=== PATIENT | female | born 1935 | race Caucasian/White ===

== ENCOUNTER 2020-10-18 13:46 | Inpatient (IN) | payer OTHER ==
[~2020-10-18] VITALS: Ht 170.2 cm; Wt 92.9 kg
[2020-10-18 13:49] VITALS: BP 148/94
[2020-10-18 14:10] LABS: ABSOLUTE NEUTROPHILS 5.3 thou/uL (1.4-8.2); BASOPHILS 0.5 % (0.0-2.0); EOSINOPHILS 0.9 % (0.0-3.0); HEMATOCRIT 45.6 % (37.0-47.0); HEMOGLOBIN 14.8 gm/dL (12.0-15.0); LYMPHOCYTES 18.6 % (24.0-44.0); MCH 29.1 pg (26.0-34.0); MCHC 32.5 g/dL (28.0-37.0); MCV 89.7 fL (80.0-100.0); MONOCYTES 11.5 % (1.0-8.0); PLATELET COUNT 179 thou/uL (150-400); POLYS 68.5 % (36.0-66.0); RBC 5.09 mil/uL (4.20-5.00); RDW 14.6 % (10.5-14.5); WBC 7.7 thou/uL (4.0-11.0)
[2020-10-18 14:22] LABS: ANION GAP 10 mmol/L (7-16); BUN 17 mg/dL (7-18); CALCIUM 9.3 mg/dL (8.5-10.1); CHLORIDE 107 mmol/L (98-107); CO2 26 mmol/L (21-32); GLUCOSE 136 mg/dL (74-106); POTASSIUM 4.1 mmol/L (3.5-5.1)
[2020-10-18 14:23] LABS: SODIUM 143 mmol/L (136-145)
[2020-10-18 14:28] LABS: APTT 25.9 Seconds (24.5-32.8); INR 1.09; PROTIME 11.8 Seconds (10.5-12.1)
[2020-10-18 14:33] LABS: ALBUMIN 3.9 g/dL (3.4-5.0); SGOT 33 U/L (15-37); SGPT 34 U/L (30-65); TOTAL BILIRUBIN 1.8 mg/dL (0.2-1.0); TOTAL PROTEIN 7.3 g/dL (6.4-8.2); TROPONIN-I <0.06 ng/mL (<0.06)
[2020-10-18] MEDS ORDERED: LORATIDINE 10 M10 M1 PO (14:55)
[2020-10-18] MEDS ORDERED: LIPITOR40 MG PO (14:55)
[2020-10-18] MEDS ORDERED: N-ACETYL-L-CYS600 MG PO (14:56)
[2020-10-18] MEDS ORDERED: BENADRYL25 MG PO (14:56)
[2020-10-18] MEDS ORDERED: [UNRECOGNIZED DRUG - OTHER] PO (14:57)
[2020-10-18] MEDS ORDERED: [UNRECOGNIZED DRUG - OTHER] PO (14:58)
[2020-10-18] MEDS ORDERED: ELDERBERRY PO (14:59)
[2020-10-18] MEDS ORDERED: [UNRECOGNIZED DRUG - OTHER] PO (14:59)
[2020-10-18] MEDS ORDERED: CENTRUM SILVER1 EAC5 PO (14:59)
[2020-10-18] MEDS ORDERED: ASA81BEC PO (15:00)
[2020-10-18] MEDS ORDERED: BIOTIN1000 MCG PO (15:00)
[2020-10-18] MEDS ORDERED: ALEVE PM CAPLE1 EACH PO (15:01)
[2020-10-18 16:42] VITALS: BP 114/82
[2020-10-18 17:12] VITALS: BP 112/75
[2020-10-18 17:45] VITALS: BP 125/92
--- NOTE | 2020-10-18 18:07 | NUR ---
PT ARRIVED FROM THE ER TO ROOM 215 FROM ER AT 1740. ADMISSION DETAILS AND ASSESSMENT PERFORM CHARTED. VSS. PT ALERT AND ORIENTED X4. PT CALM AND COOPERATIVE. PT VOICES NO CONCERNS AT THIS TIME. PT DENIES PAIN. PTS DAUGHTER LUCY AT BEDSIDE. WILL CONTINUE TO MONITOR AND FOLLOW POC.
[2020-10-18 18:33] LABS: HEMATOCRIT 44.5 % (37.0-47.0); HEMOGLOBIN 14.5 gm/dL (12.0-15.0); MCH 29.1 pg (26.0-34.0); MCHC 32.5 g/dL (28.0-37.0); MCV 89.4 fL (80.0-100.0); RBC 4.98 mil/uL (4.20-5.00); RDW 14.7 % (10.5-14.5); WBC 7.2 thou/uL (4.0-11.0)
[2020-10-18 19:42] VITALS: BP 123/67
[2020-10-19 03:08] LABS: GLYCOHEMOGLOBIN (HGB A1C) 5.8 % (4.8-5.6)
[2020-10-19 04:36] LABS: CALCIUM 8.7 mg/dL (8.5-10.1); CREATININE 0.9 mg/dL (0.6-1.0); POTASSIUM 3.2 mmol/L (3.5-5.1)
[2020-10-19 04:52] LABS: HEMATOCRIT 40.5 % (37.0-47.0); HEMOGLOBIN 13.4 gm/dL (12.0-15.0); MCH 29.6 pg (26.0-34.0); MCHC 33.1 g/dL (28.0-37.0); MCV 89.5 fL (80.0-100.0); RBC 4.52 mil/uL (4.20-5.00); WBC 6.9 thou/uL (4.0-11.0)
[2020-10-19 05:00] VITALS: BP 128/55
--- NOTE | 2020-10-19 05:51 | NUR ---
ASSESSMENTS CHARTED, MEDS CHARTED GIVEN. PATIENT HAD DILTIAZEM DRIP AT START OF SHIFT. STARTED HEPARIN DRIP. PATIENT RESTING IN BED DURING SHIFT. UP TO BATHROOM WITH SDBY ASSIST. JUMPS UP IN 130-140 WITH ACTIVITY. FALL PRECAUTIONS IN PLACE DURING SHIFT.
--- NOTE | 2020-10-19 07:25 | EKG ---
[place] [address] [facility] [place] [address] ELECTROCARDIOGRAM REPORT Name: EDUARDO ALVAREZ Room #: 215-P ADM IN M.R.#: [id number] Admission: 10/18/20 Attend Phys: Manuel Alfaro MD Discharge: Date of : 37 Report #: [id number] [facility] ED Test Date: 2020-10-18 Test Time: 13:53:00 Pat Name: EDUARDO ALVAREZ Department: Room: [facility] Gender: F Expressive Music Therapist: NATALIIA : 1935 Requested By: Chloe Montilla Order Number: [id number] MD: Ramirez Wilson Measurements Intervals [place] Rate: 161 P: GA: QRS: 65 QRSD: 73 T: QT: 304 QTc: 498 Interpretive Statements Atrial fibrillation with rapid V-rate Low voltage, precordial leads Repolarization abnormality, prob rate related No previous ECG available for comparison Electronically Signed On 10-19-2020 7:25:08 CDT by Ramirez Wilson [email or web address] <ELECTRONICALLY SIGNED> By: Ramirez Wilson MD, [facility] 10/19/20 0725 [id number] [id number] Ramirez Wilson MD, FACC /EPI
[2020-10-19 08:54] VITALS: BP 121/77
--- NOTE | 2020-10-19 09:12 | 2DMMODE ---
[facility] [place] [address] [address] 2 D/M-MODE ECHOCARDIOGRAM Name: EDUARDO ALVAREZ Room #: 215-P ADM IN M.R.#: [id number] Admission: 10/18/20 Attend Phys: Manuel Alfaro MD Discharge: Date of : 37 Report #: [id number] THIS REPORT FOR: cc: Angel Mae MD, Stanley P. MD Santiago, Patrick MD LOCATED WITHIN [facility] ~ APPROVED REPORT Study performed: 10/19/2020 07:35:23 EXAM: Comprehensive 2D, Doppler, and color-flow Echocardiogram Patient Location: Bedside Room #: 215 Status: routine BSA: 2.07 HR: 110 bpm BP: 128/55 mmHg Rhythm: Atrial Fibrillation Other Information Study Quality: Adequate Indications Short of breath, Afib with RVR, Acute CHF. (Heart rate ranged from 100's - 130s). 2D Dimensions RVDd: 37.89 mm IVSd: 8.49 (7-11mm) LVOT Diam: 21.28 (18-24mm) LVDd: 43.56 mm PWd: 9.30 (7-11mm) Ascending Ao: 35.46 (22-36mm) LVDs: 34.34 (25-40mm) Left Atrium: 37.78 (27-40mm) Aortic Root: 31.27 mm Volumes Left Atrial Volume (Systole) Single Plane 4CH: 69.82 mL Single Plane 2CH: 68.56 mL LA ESV Index: 36.00 mL/m2 Aortic Valve AoV Peak Fazal.: 1.69 m/s AO Peak Gr.: 11.88 mmHg LVOT Max P.01 mmHg AO Mean Gr.: 7.03 mmHg [facility] [address] [place] [address] 2 D/M-MODE ECHOCARDIOGRAM Name: EDUARDO ALVAREZ Room #: 215-P [facility] IN [facility].#: [id number] Admission: 10/18/20 Attend Phys: Manuel Alfaro MD Discharge: Date of : 37 Report #: [id number] AO V2 Mean: 1.24 m/s LVOT Max V: 0.71 m/s AO V2 VTI: 26.27 cm LINDA Vmax: 1.49 cm2 Mitral Valve MV Decel. Time: 127.66 ms MV E Max Fazal.: 0.92 m/s Pulmonary Valve PV Peak Fazal.: 0.56 m/s PV Peak Gr.: 1.25 mmHg Tricuspid Valve TR Peak Fazal.: 2.36 m/s RAP Estimate: 10.00 mmHg TR Peak Gr.: 22.38 mmHg PA Pressure: 32.00 mmHg Left Ventricle The left ventricle is normal size. There is normal left ventricular wall thickness. Left ventricular systolic function is low normal. LVEF is 50%. This study is not technically sufficient to allow evaluation of the LV diastolic function due to atrial fibrillation. Right Ventricle The right ventricle is normal size. The right ventricular systolic function is normal. Atria Mild biatrial enlargement. Aortic Valve Aortic valve is moderately calcified. No aortic regurgitation is present. There is mild valvular aortic stenosis. Calculated aortic valve area is 1.5 cm2 with maximum pressure gradient of 12 mmHg and mean pressure gradient of 7 mmHg. Mitral Valve The mitral valve is normal in structure. Moderate mitral regurgitation. Tricuspid Valve The tricuspid valve is normal in structure. Mild tricuspid regurgitation. Estimated PAP is 32mmHg. Pulmonic Valve The pulmonary valve is normal in structure. Trace pulmonic [facility] [address] [place] [address] 2 D/M-MODE ECHOCARDIOGRAM Name: THAXTONMATILDEN Room #: 215-P [facility] IN .R.#: [id number] Admission: 10/18/20 Attend Phys: Manuel Alfaro MD Discharge: Date of : 37 Report #: [id number] regurgitation. Great Vessels The aortic root is normal in size. The ascending aorta is normal in size. IVC is normal in size and collapses <50% with inspiration. Pericardium Small pericardial effusion. Left and right pleural effusions noted. <Conclusion> Normal left ventricle size/wall thickness low normal ejection fraction 50% Normal right ventricular size/function Mild biatrial enlargement Color-flow Doppler study was performed of the aortic/mitral/tricuspid/pulmonary valve Aortic valve is moderately calcified Mild aortic valve stenosis the mean gradient of 7 mmHg Moderate mitral valve insufficiency Mild tricuspid valve insufficiency Pulmonary systolic pressure estimated 32 mmHg No pericardial effusion Normal aortic root size. Pleural effusion noted <ELECTRONICALLY SIGNED> By: Ramirez Wilson MD, FACC 10/19/20911 1 1 Ramirez Wilson MD, FACC /INF
[2020-10-19 12:15] VITALS: BP 99/60
--- NOTE | 2020-10-19 16:33 | NUR ---
Case opened to follow for dc planning. Pottery Striper introduced role of cm to pt at bedside. She is a&ox4 and lives indep with her spouse in their home in [place], [place]. PCP is Dr. Angel Mae. She is indep with gait and adl's and iadl's. Her spouse does the shopping and both drive. She has been using a cane outside the home and does some furnature walking inside. Their dtr Michelle is involved and supportive. PT/OT evaling. Pt open to hh referral if needed but has not had it in the past. Options discussed and preference denied as long as they take [employer] and can f/u with per PCP. Referral called to [facility]. Ashvinid neg. Pt on heprin and diltiazem gtt. Cardiology following. Will f/u tomorrow and coordinate hh f/u for nursing and therapy as needed.
[2020-10-19 16:46] VITALS: BP 119/56
[2020-10-19 19:47] VITALS: BP 101/65
--- NOTE | 2020-10-19 20:12 | NUR ---
PT IS AXOX4, PLEASANT. VS HR ELEVATED, AFEBRILE, AFIB ON MONITOR. DR MARINA CONSULTED; PT GIVEN RX LOPRESSOR, HR IN 80-90s. DENIES PAIN, SOA WITH SOME ACTIVITY. HEPARIN AND CARDIZEM GTT D/C'd, ORAL CARDIAC MEDS STARTED. DR WARD CONSULTED, CARDIOLOGY CONSULTED. POC IS TO CONTINUE TO ASSESS HR AND RHYTHM EFFECTIVENESS OF PHARMACOLOGICAL INTERVENTIONS. FALL PRECAUTIONS IN PLACE. NO CONCERNS AT THIS TIME. FREQUENT ROUNDING.
[2020-10-20 03:31] VITALS: BP 114/86
[2020-10-20 06:02] LABS: CALCIUM 8.9 mg/dL (8.5-10.1); CREATININE 1.1 mg/dL (0.6-1.0)
[2020-10-20 08:30] VITALS: BP 110/55
[2020-10-20 11:20] VITALS: BP 100/55
[2020-10-20 11:28] VITALS: BP 100/55
--- NOTE | 2020-10-20 15:09 | NUR ---
[facility] can accept for services at [facility]. If dc ready this weekend, please fax dc summary and instructions to [phone] and call their oncall [phone]. Pt is hoping to go directly home at [facility]. Will reassess Friday if therapy feels snf/rehab indicated. Pt's dtr Michelle called wanting to discuss care needs and dc plan. Professional Skater attempted to reach her but her voice mail was full.
[2020-10-20 15:15] VITALS: BP 111/53
[2020-10-20 20:15] VITALS: BP 90/65
--- NOTE | 2020-10-21 04:26 | NUR ---
PT IS RESTING DENIES ANY COMPLAINTS OF PAIN . LUNGS ARE CLEAR ON ROOM AIR. 3 PLUS PEDAL EDMA NOTED BILATERAL IN LOWER LEGS. UP WITH ASSIST X1 TO BATHROOM. A FIB CONTROL RATE OF 63 ON THE SCRUB WHEEL OPERATOR. SLEEPING NO COMPLAINTS NOTED WITH ASSESEMENTS PER NURSING
[2020-10-21 04:31] LABS: HEMATOCRIT 42.2 % (37.0-47.0); HEMOGLOBIN 13.7 gm/dL (12.0-15.0); MCH 29.1 pg (26.0-34.0); MCHC 32.4 g/dL (28.0-37.0); RBC 4.7 mil/uL (4.20-5.00); RDW 14.6 % (10.5-14.5); WBC 6.8 thou/uL (4.0-11.0)
[2020-10-21 04:45] VITALS: BP 133/68
[2020-10-21 08:15] VITALS: BP 124/57
[2020-10-21] MEDS ORDERED: DILTIAZEM 24HR240 M1 PO (10:02)
[2020-10-21] MEDS ORDERED: METOPROLOL SUCC50 MG PO (10:02)
[2020-10-21] MEDS ORDERED: TORSEMIDE10 MG PO (10:02)
[2020-10-21] MEDS ORDERED: XARELTO20 MG PO (10:02)
[2020-10-21 11:32] VITALS: BP 100/55
--- NOTE | 2020-10-21 12:11 | NUR ---
SW informed that pt is medically stable to transition home w/ HH. SW and discharging provider present to discuss D/C plan w/ pt and daughter Michelle at pt chairside. Pt is agreeable to HH w/ [facility]. SW faxed D/C order to [facility] fax [phone] and informed weekend liasion Roseline. No further needs identified
[2020-10-21 12:44] VITALS: BP 100/55; BP 114/62
--- NOTE | 2020-10-21 13:18 | NUR ---
ASSESSMENT CHARTED - MEDS PER JUN - NO CO'S OF PAINOR NAUSEA. JOCELIN DIET AND FLUIDS. UP AD LUIS IN ROOM WITH THE USE OF A CANE. PT SIVA THIS AFTERNOON - INSTRUCTION RE HOME MEDS/ CARE AND FOLLOW UP GIVEN TO DAUGHTER -STATED UNDERSTANDING OF INSTURCTION GIVEN. [facility] NOTIFIED THAT PATIENT PT WAS BEING DISCHARGED - D/C INSTRUCTIONS FAXED TO NUMBER ON CHART. LEFT UNIT VIA WHEELCHAIR HOME ACCOMPAINED BY DAUGHTER VIA [employer]. NO CO'S AT TIME OF D/C.
== END 2020-10-21 13:26 | disposition home health service (06) | DRG 291 ==
LOC: ER 13:46 → 2N 16:40 → EROBS 16:40 → 2N 17:40
PROVIDERS: Emergency Medicine; Internal Medicine; Nurse Practitioner; ADMIT Hospitalist; ATTEND Hospitalist
DX: I11.0 Hypertensive heart disease with heart failure (principal); R65.11 Systemic inflammatory response syndrome (SIRS) of non-infectious origin with acute organ dysfunction; I50.31 Acute diastolic (congestive) heart failure; I48.20 Chronic atrial fibrillation, unspecified; J90 Pleural effusion, not elsewhere classified; E78.5 Hyperlipidemia, unspecified; E11.9 Type 2 diabetes mellitus without complications; I25.10 Atherosclerotic heart disease of native coronary artery without angina pectoris; E87.6 Hypokalemia; M81.0 Age-related osteoporosis without current pathological fracture; R53.81 Other malaise; Z20.822 Contact with and (suspected) exposure to COVID-19; Z79.82 Long term (current) use of aspirin; Z86.73 Personal history of transient ischemic attack (TIA), and cerebral infarction without residual deficits; Z79.01 Long term (current) use of anticoagulants; Z79.899 Other long term (current) drug therapy; Z88.8 Allergy status to other drugs, medicaments and biological substances
CPT/HCPCS: 10081

== ENCOUNTER → 2021-01-05 | Outpatient (CLI) | payer OTHER ==
[~2021-01-05] MED LIST: ALEVE PM CAPLE1 EACH PO; ASA81BEC PO; BENADRYL25 MG PO; BIOTIN1000 MCG PO; CENTRUM SILVER1 EAC5 PO; DILTIAZEM 24HR240 M1 PO; ELDERBERRY PO; LIPITOR40 MG PO; LORATIDINE 10 M10 M1 PO; METOPROLOL SUCC50 MG PO; N-ACETYL-L-CYS600 MG PO; TORSEMIDE10 MG PO; XARELTO20 MG PO; [UNRECOGNIZED DRUG - OTHER] PO; [UNRECOGNIZED DRUG - OTHER] PO; [UNRECOGNIZED DRUG - OTHER] PO
== END ==
LOC: SJCVC 13:21
PROVIDERS: ATTEND Internal Medicine Cardiovascular Disease
DX: R94.31 Abnormal electrocardiogram [ECG] [EKG] (principal); I49.3 Ventricular premature depolarization; I48.91 Unspecified atrial fibrillation; I50.9 Heart failure, unspecified; E78.00 Pure hypercholesterolemia, unspecified; D68.59 Other primary thrombophilia; E87.6 Hypokalemia; Z79.899 Other long term (current) drug therapy